=== PATIENT | female | born 1990 | race African-American/Black ===

== ENCOUNTER 2017-04-30 21:23 | Emergency (ER) | payer MEDICAID ==
[2017-04-30 21:42] VITALS: BMI 29.5
[2017-04-30 21:55] LABS: BASOPHILS % (AUTO) 0.5 % (0.2-1.0); EOSINOPHILS # (AUTO) 0.7 x10^3/uL (0.0-0.2); EOSINOPHILS % (AUTO) 7.4 % (0.9-2.9); HEMOGLOBIN 13.5 g/dL (12.0-16.0); LYMPHOCYTES # (AUTO) 2.8 X10^3/uL (1.3-2.9); LYMPHOCYTES % (AUTO) 29.4 % (21.0-51.0); MEAN CORPUSCULAR HEMOGLOBIN 28.2 pg (27.0-34.0); MEAN CORPUSCULAR HGB CONC 34.7 g/dL (33.0-35.0); MEAN CORPUSCULAR VOLUME 81.2 fL (80.0-100.0); MEAN PLATELET VOLUME 8.7 fL (7.4-11.0); MONOCYTES # (AUTO) 0.6 x10^3/uL (0.3-0.8); MONOCYTES % (AUTO) 5.9 % (0.0-13.0); NEUTROPHILS # (AUTO) 5.5 x10^3/uL (2.2-4.8); NEUTROPHILS % (AUTO) 56.8 % (42.0-75.0); PLATELET COUNT 216 X10^3/uL (150.0-450.0); RED CELL DISTRIBUTION WIDTH 14.4 % (11.6-16.5); WHITE BLOOD COUNT 9.7 X10^3/uL (3.6-10.0)
[2017-04-30 22:07] LABS: SERUM PREGNANCY TEST, QUAL NEGATIVE <10 mIU/mL
--- NOTE | 2017-04-30 23:22 | DR.GENAD ---
HPI - PCP Primary Care Physician: NFTra - HPI Comment HPI Comment: vaginal bleed - Complaint/Symptoms Chief Complaint Doctors Comments: A 26 y/o presenting to E/R [facility] with onset of vaginal bleed in past 1hr. She has an implanted subcutaneous contraceptive device placed in September 2016. Her LMP was in the month of March 2017 and lastted just about the whole month, ending on 04/21/17. With this bleed tonight, she states that she has used 2 menstrual pads and now has a diaper on to come to the E/R. She has no abdominal pain or nausea. Chief Complaint:: PT STATES" I'M BLEEDING REAL BAD I'VE CHANGED MY PAD TWICE IN THE LAST HOUR AND I HAVE A DIAPER ON NOW AND IT'S ABOUT FULL" Self Treatment fo Chief Complaint: nothing - Nurses notes reviewed Nurses Notes Review: Yes - Source History Provided: Patient - Mode of Arrival Mode of Arrival: Ambulatory - Timing Onset of Chief Complaint: 04/30/17 Came on: Gradually - Duration Duration: Constant How lon Duration: Hours - Modifying Factors Worsens:: nothing Improves:: nothing - Associated Signs and Symptoms Associated Signs and Symptoms: none PMH - PMH Past Medical History: Yes Past Medical History: Asthma Past Medical History Comment: G 3 P 2 A 1 Past Surgical History: Yes Surgical History: Other Past Surgical History Comment: TUBES IN EARS - Family History History of Family Medical Conditions: No - Social History Does patient currently use any type of tobacco product: Yes Have you used tobacco products in the last 12 months: Yes Type of Tobacco Use: Cigarettes Alcohol Use: Rarely Do you use any recreational Drugs:: No Lives With: Family Lives Where: Home - infectious screening In the last 2 months have you had wt loss of >10#?: NO Have you had fever, night sweats or hemotysis?: No Have you traveled outside the country in the last 6 months?: No Isolation: Standard ROS - Review of Systems Constitutional: No Symptoms Reported Eyes: No Symptoms Reported ENTM: No Symptoms Reported Respiratoy: No Symptoms Reported Cardiovascular: No Symptoms Reported Gastrointestinal/Abdominal: No Symptoms Reported Genitourinary: Bleeding (vaginally) Neurological: No Symptoms Reported Musculoskeletal: No Symptoms Reported Integumentary: No Symptoms Reported Hematologic/Lymphatic: No Symptoms Reported Endocrine: No Symptoms Reported Psychiatric: No Symptoms Reported All Other Systems: Reviewed and Negative PE - Vital Signs Vitals: Temperature 97.9 F Pulse Rate [Left Radial] 81 Pulse Rate 107 Respiratory Rate 20 Blood Pressure [Left Arm] 103/72 Blood Pressure 144/93 O2 Sat by Pulse Oximetry 100 - General Limitations: No Limitations General Appearance: Alert, In No Apparent Distress - Head Head Exam: Normal Inspection - Eyes Eye exam: Normal Appearance - ENT ENT Exam: Normal Exam External Ear Exam: Normal External Inspection TM/Canal Exam: Bilateral Normal Nose Exam: Normal Nose Exam Mouth Exam: Normal Inspection Throat Exam: Normal Inspection - Neck Neck Exam: Normal Inspection - Chest Chest Inspection: Normal Inspection - Respiratory Respiratory Exam: Normal Lung Sounds Bilat Respiratory Exam: Bilateral Clear to Auscultation - Cardiovascular Cardiovascular Exam: Regular Rate, Normal Rhythm - Abdominal Exam Abdominal Exam: Normal Inspection, Normal Bowel Sounds, Soft - Extremities Extremities Exam: Normal Inspection - Back Back Exam: Normal Inspection - Neurologic Neurological Exam: Alert, Oriented X3 - Psychiatric Psychiatric Exam: Normal Affect, Normal Mood - Skin Skin Exam: Warm, Dry, Intact, Normal Color - Other Exam Other Exam: vaginal exam attempted with female E/R nursing staff as welder assistant Pt. was placed in lithotripsy position. Her externalexam was normal (labia, clitoris). There is bright red blood with clots in vaginal at tip. The immediate blood was cleaned but fresh blood was gushing out. A good vaginal exam could not be done for this reason. Course - Reevaluation 1st: Improved 2nd: Improved - Consultation Called: 23:16 Call Returned: 23:16 Consultation Comments: I spoke with Dr. barakat, covering [employer] THERAPIST for Dr. Prieto about this pt. in our E/R. With indwelling subcutaneous contraceptive device, likely has thinned endothelium. The recommended is to use I.V. Premarin to slow or control bleeding ROR - Labs Reviewed Result Diagrams: 05/01/17 06:55 Laboratory: WBC 13.6 X10^3/uL (3.6-10.0) H 05/01/17 06:55 RBC 3.40 X10^6/uL (3.5-5.4) L 05/01/17 06:55 Hgb 9.5 g/dL (12.0-16.0) L 05/01/17 06:55 Hct 27.8 % (36.0-47.0) L 05/01/17 06:55 MCV 81.7 fL (80.0-100.0) 05/01/17 06:55 MCH 28.1 pg (27.0-34.0) 05/01/17 06:55 MCHC 34.4 g/dL (33.0-35.0) 05/01/17 06:55 RDW 14.0 % (11.6-16.5) 05/01/17 06:55 Plt Count 151 X10^3/uL (150.0-450.0) 05/01/17 06:55 MPV 8.8 fL (7.4-11.0) 05/01/17 06:55 Neut % 79.3 % (42.0-75.0) H 05/01/17 06:55 Lymph % 12.6 % (21.0-51.0) L 05/01/17 06:55 [place] % 5.8 % (0.0-13.0) 05/01/17 06:55 Eos % 1.8 % (0.9-2.9) 05/01/17 06:55 Baso % 0.5 % (0.2-1.0) 05/01/17 06:55 Neut # 10.8 x10^3/uL (2.2-4.8) H 05/01/17 06:55 Lymph # 1.7 X10^3/uL (1.3-2.9) 05/01/17 06:55 [place] # 0.8 x10^3/uL (0.3-0.8) 05/01/17 06:55 Eos # 0.2 x10^3/uL (0.0-0.2) 05/01/17 06:55 Baso # 0.1 X10^3/uL (0.0-0.1) 05/01/17 06:55 Absolute Nucleated RBC 0.0 /100WBC 05/01/17 06:55 HCG, Qual Negative <10 mIU/mL 04/30/17 21:47 - Diagnosis Discharge Problem: Uterine bleeding, dysfunctional, Anemia associated with acute blood loss - Discharge Plan Condition: Stable - Follow ups/Referrals Follow ups/Referrals: NFD,None [Primary Care Provider] - 3 days - Instructions
[2017-05-01 00:32] LABS: HEMATOCRIT 36.4 % (36.0-47.0); HEMOGLOBIN 12.5 g/dL (12.0-16.0)
[2017-05-01 03:30] LABS: HEMATOCRIT 29.9 % (36.0-47.0); HEMOGLOBIN 10.4 g/dL (12.0-16.0)
[2017-05-01] MEDS ORDERED: NS 1000 ML 1,000 ML IV ONE (04:40)
[2017-05-01] MEDS ORDERED: NS 1000 ML 1,000 ML ONE (04:41)
[2017-05-01 07:06] LABS: BASOPHILS # (AUTO) 0.1 X10^3/uL (0.0-0.1); BASOPHILS % (AUTO) 0.5 % (0.2-1.0); EOSINOPHILS # (AUTO) 0.2 x10^3/uL (0.0-0.2); EOSINOPHILS % (AUTO) 1.8 % (0.9-2.9); HEMATOCRIT 27.8 % (36.0-47.0); HEMOGLOBIN 9.5 g/dL (12.0-16.0); LYMPHOCYTES # (AUTO) 1.7 X10^3/uL (1.3-2.9); LYMPHOCYTES % (AUTO) 12.6 % (21.0-51.0); MEAN CORPUSCULAR HEMOGLOBIN 28.1 pg (27.0-34.0); MEAN CORPUSCULAR HGB CONC 34.4 g/dL (33.0-35.0); MEAN CORPUSCULAR VOLUME 81.7 fL (80.0-100.0); MEAN PLATELET VOLUME 8.8 fL (7.4-11.0); MONOCYTES # (AUTO) 0.8 x10^3/uL (0.3-0.8); MONOCYTES % (AUTO) 5.8 % (0.0-13.0); NEUTROPHILS # (AUTO) 10.8 x10^3/uL (2.2-4.8); NEUTROPHILS % (AUTO) 79.3 % (42.0-75.0); PLATELET COUNT 151 X10^3/uL (150.0-450.0); WHITE BLOOD COUNT 13.6 X10^3/uL (3.6-10.0)
[2017-05-01 07:08] VITALS: BP 103/72
== END 2017-05-01 08:49 | disposition home or self-care (01) ==
LOC: ER 21:23
DX: N93.8 Other specified abnormal uterine and vaginal bleeding (principal); D62 Acute posthemorrhagic anemia
CPT/HCPCS: 36415; 84703; 85014; 85018; 85025; 96365; 96367; 96374; 99283; 99284; 99285; A4222

== ENCOUNTER 2017-10-17 17:39 | Emergency (ER) | payer MEDICAID ==
[2017-10-17 17:43] VITALS: BMI 29.8
--- NOTE | 2017-10-17 17:58 | DR.GENAD ---
HPI - PCP Primary Care Physician: NFD - Complaint/Symptoms Chief Complaint Doctors Comments: Patient presents with complaint of abdominal cramping, spotting and slight vaginal bleeding for two weeks. LMP Apr/or May of last year. She is a single female who admits to cigarettes smoking but no alcohol. She took two tests at home which were positive and one [facility] the [facility] which was slightly positive. Chief Complaint:: PT. STATES SHE TOOK 2 AT HOME TEST ON MONDAY AND THEY WERE POSITIVE. PT. STATES TODAY SHE HAS HAD VAGINAL BLEEDING & ABDOMINAL CRAMPING. PT. HAS THE NEXPLANON CONTROL IN HER ARM AND IS SCHEDULED TO SEE DR. MARSH TOMORROW TO HAVE IT REMOVED. - Source History Provided: Patient - Mode of Arrival Mode of Arrival: Ambulatory - Timing Onset of Chief Complaint: 10/17/17 PMH - PMH Past Medical History: No Past Medical History: Asthma Past Surgical History: No Surgical History: No History - Family History History of Family Medical Conditions: No - Social History Does patient currently use any type of tobacco product: Yes Have you used tobacco products in the last 12 months: Yes Type of Tobacco Use: Cigarettes Does any household member use tobacco: No Alcohol Use: None Do you use any recreational Drugs:: No Lives With: Family Lives Where: Home - infectious screening In the last 2 months have you had wt loss of >10#?: NO Have you had fever, night sweats or hemotysis?: No Have you traveled outside the country in the last 6 months?: No Isolation: Standard ROS - Review of Systems Eyes: No Symptoms Reported ENTM: No Symptoms Reported Respiratoy: No Symptoms Reported Cardiovascular: No Symptoms Reported Gastrointestinal/Abdominal: No Symptoms Reported Genitourinary: No Symptoms Reported Neurological: No Symptoms Reported Musculoskeletal: No Symptoms Reported Integumentary: No Symptoms Reported Hematologic/Lymphatic: No Symptoms Reported Endocrine: No Symptoms Reported Psychiatric: No Symptoms Reported All Other Systems: Reviewed and Negative PE - Vital Signs Vitals: Temperature 98.7 F Pulse Rate 84 Respiratory Rate 17 Blood Pressure [Left Arm] 103/72 Blood Pressure 138/68 O2 Sat by Pulse Oximetry 99 - General Limitations: No Limitations General Appearance: Alert - Head Head Exam: Normal Inspection, Atraumatic - Eyes Eye exam: Normal Appearance, PERRL, EOMI - ENT ENT Exam: Normal Exam, Normal Oropharynx External Ear Exam: Normal External Inspection TM/Canal Exam: Bilateral Normal Nose Exam: Normal Nose Exam Mouth Exam: Normal Inspection Throat Exam: Normal Inspection - Neck Neck Exam: Normal Inspection, Full ROM - Chest Chest Inspection: Normal Inspection, Symmetric Chest Wall Rise - Respiratory Respiratory Exam: Normal Lung Sounds Bilat Respiratory Exam: Bilateral Clear to Auscultation - Cardiovascular Cardiovascular Exam: Regular Rate, Normal Rhythm - Abdominal Exam Abdominal Exam: Normal Inspection, Normal Bowel Sounds Abdominal Tenderness: negative: RUQ, RLQ, LUQ, LLQ, Epigastrium, Suprapubic, Diffuse, Mild, Moderate, Severe, Other - Extremities Extremities Exam: Normal Inspection, Full ROM - Back Back Exam: Normal Inspection, Full ROM - Neurologic Neurological Exam: Alert, Oriented X3, CN II-XII Intact - Psychiatric Psychiatric Exam: Normal Affect, Normal Mood - Skin Skin Exam: Warm, Dry, Intact ROR - Labs Reviewed Laboratory Results Reviewed?: Yes (negative test) Result Diagrams: 10/17/17 18:20 10/17/17 18:20 Laboratory: WBC 8.5 X10^3/uL (3.6-10.0) 10/17/17 18:20 RBC 4.40 X10^6/uL (3.5-5.4) 10/17/17 18:20 Hgb 12.6 g/dL (12.0-16.0) 10/17/17 18:20 Hct 36.7 % (36.0-47.0) 10/17/17 18:20 MCV 83.5 fL (80.0-100.0) 10/17/17 18:20 MCH 28.6 pg (27.0-34.0) 10/17/17 18:20 MCHC 34.2 g/dL (33.0-35.0) 10/17/17 18:20 RDW 14.6 % (11.6-16.5) 10/17/17 18:20 Plt Count 216 X10^3/uL (150.0-450.0) 10/17/17 18:20 MPV 8.5 fL (7.4-11.0) 10/17/17 18:20 Neut % 57.8 % (42.0-75.0) 10/17/17 18:20 Lymph % 29.4 % (21.0-51.0) 10/17/17 18:20 [place] % 5.6 % (0.0-13.0) 10/17/17 18:20 Eos % 6.5 % (0.9-2.9) H 10/17/17 18:20 Baso % 0.7 % (0.2-1.0) 10/17/17 18:20 Neut # 4.9 x10^3/uL (2.2-4.8) H 10/17/17 18:20 Lymph # 2.5 X10^3/uL (1.3-2.9) 10/17/17 18:20 [place] # 0.5 x10^3/uL (0.3-0.8) 10/17/17 18:20 Eos # 0.6 x10^3/uL (0.0-0.2) H 10/17/17 18:20 Baso # 0.1 X10^3/uL (0.0-0.1) 10/17/17 18:20 Absolute Nucleated RBC 0.0 /100WBC 10/17/17 18:20 D-Dimer Cancelled 10/17/17 18:20 Sodium 134 mmol/L (136-145) L 10/17/17 18:20 Corrected Sodium TNP 10/17/17 18:20 Potassium 3.9 mmol/L (3.5-5.1) 10/17/17 18:20 Chloride 105 mmol/L (98-107) 10/17/17 18:20 Carbon Dioxide 24.9 mmol/L (21-32) 10/17/17 18:20 BUN 24 mg/dL (7-18) H 10/17/17 18:20 Creatinine 1.05 mg/dL (0.55-1.02) H 10/17/17 18:20 Est GFR (MDRD) Af Amer > 60 (>60) 10/17/17 18:20 Est GFR (MDRD) Non-Af > 60 (>60) 10/17/17 18:20 Glucose 82 mg/dL (65-99) 10/17/17 18:20 Calcium 8.8 mg/dL (8.5-10.1) 10/17/17 18:20 HCG, Quant < 1 mIU/mL (0-6) 10/17/17 18:20 Specimen Type Clean catch urine 10/17/17 17:56 Urine Color Yellow (YELLOW) 10/17/17 17:56 Urine Appearance Clear (CLEAR) 10/17/17 17:56 Urine pH 6.5 (5.0 - 8.0) 10/17/17 17:56 Ur Specific [place] 1.010 (1.000-1.030) 10/17/17 17:56 Urine Protein Negative (NEGATIVE) 10/17/17 17:56 Urine Glucose (UA) Negative (NEGATIVE) 10/17/17 17:56 Urine Ketones Negative (NEGATIVE) 10/17/17 17:56 Urine Occult Blood 5+ (NEGATIVE) 10/17/17 17:56 Urine Nitrite Negative (NEGATIVE) 10/17/17 17:56 Urine Bilirubin Negative (NEGATIVE) 10/17/17 17:56 Urine Urobilinogen Normal (NORMAL) 10/17/17 17:56 Ur Leukocyte Esterase 1+ (NEGATIVE) 10/17/17 17:56 Urine RBC 0-2 /HPF (NEGATIVE) 10/17/17 17:56 Urine WBC 0-2 /HPF (NEGATIVE) 10/17/17 17:56 Ur Squamous Epith Cells Rare /HPF (NEGATIVE) 10/17/17 17:56 Urine Bacteria Trace /HPF (NEGATIVE) 10/17/17 17:56 Ur Culture Indicated? No/not indicated 10/17/17 17:56 - Diagnosis Discharge Problem: Negative test, Mild dehydration - Discharge Plan Condition: Stable - Follow ups/Referrals Follow ups/Referrals: NFD,None [Primary Care Provider] - 3 days - Instructions
[2017-10-17] MEDS ORDERED: NS 1000 ML 1,000 ML IV ONE (17:59)
[2017-10-17 18:04] LABS: BILIRUBIN,URINE NEGATIVE (NEGATIVE); BLOOD/HEMOGLOBIN,URINE 5+ (NEGATIVE); GLUCOSE, URINE NEGATIVE (NEGATIVE); KETONES,URINE NEGATIVE (NEGATIVE); LEUKOCYTE ESTERASE ,URINE 1+ (NEGATIVE); NITRITES,URINE NEGATIVE (NEGATIVE); PH,URINE 6.5 (5.0 - 8.0); PROTEIN,URINE NEGATIVE (NEGATIVE); UROBILINOGEN,URINE NORMAL (NORMAL)
[2017-10-17 18:13] LABS: APPEARANCE,URINE CLEAR (CLEAR); COLOR,URINE YELLOW (YELLOW); RBC,URINE 0-2 /HPF (NEGATIVE)
[2017-10-17] MEDS ORDERED: NS 1000 ML 1,000 ML ONE (18:13)
[2017-10-17 18:14] LABS: BACTERIA,URINE TRACE /HPF (NEGATIVE); SQUAMOUS EPITHELIAL CELL,UR RARE /HPF (NEGATIVE)
[2017-10-17 18:24] LABS: BASOPHILS # (AUTO) 0.1 X10^3/uL (0.0-0.1); BASOPHILS % (AUTO) 0.7 % (0.2-1.0); EOSINOPHILS # (AUTO) 0.6 x10^3/uL (0.0-0.2); EOSINOPHILS % (AUTO) 6.5 % (0.9-2.9); HEMATOCRIT 36.7 % (36.0-47.0); HEMOGLOBIN 12.6 g/dL (12.0-16.0); LYMPHOCYTES # (AUTO) 2.5 X10^3/uL (1.3-2.9); LYMPHOCYTES % (AUTO) 29.4 % (21.0-51.0); MEAN CORPUSCULAR HEMOGLOBIN 28.6 pg (27.0-34.0); MEAN CORPUSCULAR HGB CONC 34.2 g/dL (33.0-35.0); MEAN CORPUSCULAR VOLUME 83.5 fL (80.0-100.0); MEAN PLATELET VOLUME 8.5 fL (7.4-11.0); MONOCYTES # (AUTO) 0.5 x10^3/uL (0.3-0.8); MONOCYTES % (AUTO) 5.6 % (0.0-13.0); NEUTROPHILS # (AUTO) 4.9 x10^3/uL (2.2-4.8); NEUTROPHILS % (AUTO) 57.8 % (42.0-75.0); PLATELET COUNT 216 X10^3/uL (150.0-450.0); RED CELL DISTRIBUTION WIDTH 14.6 % (11.6-16.5); WHITE BLOOD COUNT 8.5 X10^3/uL (3.6-10.0)
[2017-10-17 18:31] LABS: BLOOD UREA NITROGEN 24 mg/dL (7-18); CALCIUM 8.8 mg/dL (8.5-10.1); CARBON DIOXIDE 24.9 mmol/L (21-32); CHLORIDE 105 mmol/L (98-107); CREATININE 1.05 mg/dL (0.55-1.02); SODIUM 134 mmol/L (136-145); eGFR BLACK RACES > 60 (>60); eGFR NON BLACK RACES > 60 (>60)
[2017-10-17 19:49] VITALS: BP 118/75
== END 2017-10-17 19:49 | disposition home or self-care (01) ==
LOC: ER 17:46
DX: E86.0 Dehydration (principal); Z32.02 Encounter for pregnancy test, result negative
CPT/HCPCS: 36415; 80048; 81001; 84702; 85025; 99282; A4222